=== PATIENT | female | born 1930 | race Caucasian/White ===

== ENCOUNTER → 2017-05-04 | Outpatient (CLI) | payer OTHER, MEDICARE ==
[~2017-05-04] MED LIST: ASPIR 8181 M1 PO; ASPIRIN EC325 MG PO; CALCIUM 500 MG1 EACH PO; CELECOXIB200 MG PO; CYANOCOBALAM1000 MCG PO; DOXAZOSIN MESYLA8 MG PO; FERROUS SULFAT325 MG PO; FIBERCON625 MG PO; GARLIC1 EACH PO; HYDROCHLOROTH12.5 M3 PO; HYDROCODON-ACE1 EAC7 PO; LOSARTAN POTAS100 MG PO; LOVASTATIN20 MG PO; MAGNESIUM250 M1 PO; METOPROLOL TART25 MG PO; OMEPRAZOLE20 M2 PO; SPIRONOLACTONE25 MG PO; TYLENOL ARTHRI650 MG PO
== END | disposition home or self-care (01) ==
LOC: RAD 08:45
DX: H05.20 Unspecified exophthalmos (principal); H05.823 Myopathy of extraocular muscles, bilateral; E05.00 Thyrotoxicosis with diffuse goiter without thyrotoxic crisis or storm; H53.8 Other visual disturbances
CPT/HCPCS: 70482

== ENCOUNTER 2017-06-23 07:15 | Inpatient (IN) | payer OTHER, MEDICARE ==
[~2017-06-23] VITALS: Ht 157.5 cm; Wt 72.1 kg
[2017-06-23 08:04] LABS: HEMATOCRIT 24.4 % (36.0-46.0); HEMOGLOBIN 8.6 G/DL (11.9-15.5); MCH 31.5 PG (29.0-34.0); MCHC 35.2 G/DL (30.0-36.0); MCV 89.4 FL (83-99); NRBC (%) 0.1 /100 WBC (0-0); PLATELET COUNT 214 K/uL (156-360); RBC DIS.WIDTH-CV 15.9 % (11.8-14.6); RBC DIS.WIDTH-SD 51.7 % (39-53); RED BLOOD COUNT 2.73 M/uL (3.80-5.20); WHITE BLOOD COUNT 27.8 K/uL (4.1-10.2)
[2017-06-23 08:12] LABS: ALBUMIN 2.9 g/dL (3.2-4.8)
[2017-06-23 08:13] LABS: CHLORIDE 92 mEq/L (99-109); POTASSIUM 4.3 mEq/L (3.7-5.4); SODIUM 126 mEq/L (136-147)
[2017-06-23 08:15] LABS: GLUCOSE 210 mg/dL (70-99); TOTAL PROTEIN 4.7 g/dL (6.4-8.3)
[2017-06-23 08:17] LABS: TOTAL BILIRUBIN 0.7 mg/dL (0.0-1.0)
[2017-06-23 08:18] LABS: ALKALINE PHOSPHATASE 71 IU/L (3-129)
[2017-06-23 08:19] LABS: CREATININE 1.2 mg/dL (0.6-1.3); GFR ESTIMATE (CALCULATED) 45 mL/min/
[2017-06-23 08:20] LABS: AST (GOT) 9 IU/L (2-34); UREA NITROGEN (BUN) 39 mg/dL (9-23)
[2017-06-23 08:22] LABS: ALT (GPT) 11 IU/L (3-49); LIPASE 2 U/L (1.0-51.0)
[2017-06-23 08:24] LABS: TROP-I INTERPRETATION NEGATIVE; TROPONIN-I 0.03 ng/mL (0.0-0.30)
[2017-06-23 08:43] LABS: APPEARANCE CLEAR ((CLEAR)); BILIRUBIN NEGATIVE; BLOOD NEGATIVE; COLOR YELLOW ((YELLOW)); GLUCOSE (STRIP) NEGATIVE; KETONES NEGATIVE; LEUKOCYTES NEGATIVE; NITRITE NEGATIVE; PROTEIN (STRIP) 100
[2017-06-23 08:51] LABS: BACTERIA NONE SEEN /HPF; EPITHELIAL CELLS NONE SEEN /HPF; MUCUS NONE SEEN /LPF; RED BLOOD CELLS 0-5 /HPF (0-5); WHITE BLOOD CELLS 0-5 /HPF (0-5)
[2017-06-23 09:16] LABS: SPECIFIC GRAVITY 1.062 (1.000-1.030)
[2017-06-23 15:25] LABS: TROP-I INTERPRETATION NEGATIVE; TROPONIN-I 0.02 ng/mL (0.0-0.30)
[2017-06-23] MEDS ORDERED: LO-DOSE ASPIRIN81 M2 PO (16:26)
[2017-06-23] MEDS ORDERED: LASIX40 MG PO (16:32)
[2017-06-23] MEDS ORDERED: LEVOTHYROXINE25 MCG PO (16:33)
[2017-06-23] MEDS ORDERED: PREDNISONE20 MG PO (16:37)
[2017-06-23] MEDS ORDERED: INDERAL10 MG PO (16:42)
[2017-06-23] MEDS ORDERED: TAPAZOLE10 MG PO (16:44)
[2017-06-23 20:30] VITALS: BP 138/61
[2017-06-23 22:13] LABS: TROP-I INTERPRETATION NEGATIVE; TROPONIN-I 0.14 ng/mL (0.0-0.30)
[2017-06-24] VITALS (10 sets, daily range): BP systolic 121–190; BP diastolic 54–82
[2017-06-24 05:53] LABS: HEMATOCRIT 21.5 % (36.0-46.0); HEMOGLOBIN 7.3 G/DL (11.9-15.5); MCH 31.2 PG (29.0-34.0); MCV 91.9 FL (83-99); PLATELET COUNT 181 K/uL (156-360); RBC DIS.WIDTH-CV 16.9 % (11.8-14.6); RBC DIS.WIDTH-SD 56.8 % (39-53); RED BLOOD COUNT 2.34 M/uL (3.80-5.20); WHITE BLOOD COUNT 18.8 K/uL (4.1-10.2)
[2017-06-24 06:00] LABS: INTER. NORMALIZED RATIO 1.3
[2017-06-24 09:13] LABS: FERRITIN 91 NG/ML (10-291)
[2017-06-24 09:25] LABS: CHLORIDE 104 MEQ/L (99-109); GFR ESTIMATE (CALCULATED) 56 mL/min/; GLUCOSE 242 mg/dL (70-99); POTASSIUM 3.5 MEQ/L (3.7-5.4); SODIUM 133 MEQ/L (136-147); TRANSFERRIN (TIBC) 152.7 mg/dL (215-380); UREA NITROGEN (BUN) 25 mg/dL (9-23)
[2017-06-24 14:06] LABS: IRON < 10 MCG/DL (35-150); TRANSFERRIN SATUR. 7 % (20-55)
[2017-06-25] VITALS (8 sets, daily range): BP systolic 149–182; BP diastolic 67–81
[2017-06-25 05:37] LABS: HEMATOCRIT 25.6 % (36.0-46.0); HEMOGLOBIN 8.5 G/DL (11.9-15.5); MCH 29.8 PG (29.0-34.0); MCHC 33.2 G/DL (30.0-36.0); MCV 89.8 FL (83-99); PLATELET COUNT 174 K/uL (156-360); RBC DIS.WIDTH-CV 18.5 % (11.8-14.6); RBC DIS.WIDTH-SD 60.6 % (39-53); WHITE BLOOD COUNT 13.1 K/uL (4.1-10.2)
[2017-06-25 05:39] LABS: RED BLOOD COUNT 2.85 M/uL (3.80-5.20)
[2017-06-25 06:04] LABS: CHLORIDE 112 MEQ/L (99-109); CREATININE 0.8 MG/DL (0.6-1.3); GFR ESTIMATE (CALCULATED) > 59 mL/min/; GLUCOSE 272 mg/dL (70-99); MAGNESIUM 2.5 mg/dl (1.3-2.7); POTASSIUM 3.5 MEQ/L (3.7-5.4); UREA NITROGEN (BUN) 20 mg/dL (9-23)
[2017-06-25 06:06] LABS: SODIUM 141 MEQ/L (136-147)
[2017-06-26] VITALS (7 sets, daily range): BP systolic 134–197; BP diastolic 63–82
[2017-06-26 05:20] LABS: HEMATOCRIT 26.8 % (36.0-46.0); HEMOGLOBIN 8.6 G/DL (11.9-15.5); MCH 29.4 PG (29.0-34.0); MCHC 32.1 G/DL (30.0-36.0); MCV 91.5 FL (83-99); PLATELET COUNT 201 K/uL (156-360); RBC DIS.WIDTH-CV 18.9 % (11.8-14.6); RBC DIS.WIDTH-SD 64.4 % (39-53); RED BLOOD COUNT 2.93 M/uL (3.80-5.20); WHITE BLOOD COUNT 10.6 K/uL (4.1-10.2)
[2017-06-26 07:13] LABS: CHLORIDE 116 MEQ/L (99-109); GFR ESTIMATE (CALCULATED) 56 mL/min/; GLUCOSE 325 mg/dL (70-99); POTASSIUM 3.9 MEQ/L (3.7-5.4); SODIUM 147 MEQ/L (136-147); UREA NITROGEN (BUN) 24 mg/dL (9-23)
[2017-06-26 08:51] LABS: C DIFF TOXIN NEGATIVE (NEGATIVE)
[2017-06-27 00:47] VITALS: BP 128/92
[2017-06-27 04:09] VITALS: BP 138/65
[2017-06-27 05:54] LABS: BASOPHIL (%) 0.2 % (0-1); EOSINOPHIL (%) 0.1 % (0-5); HEMATOCRIT 24.5 % (36.0-46.0); HEMOGLOBIN 7.7 G/DL (11.9-15.5); IMMATURE GRANULOCYTE (%) 0.8 % (0.0-0.7); LYMPHOCYTE (%) 4.2 % (15-42); LYMPHOCYTE COUNT 0.5 K/uL (1.0-2.8); MCH 28.9 PG (29.0-34.0); MCHC 31.4 G/DL (30.0-36.0); MCV 92.1 FL (83-99); MONOCYTE COUNT 0.7 K/uL (0-0.8); NEUTROPHIL (%) 88.7 % (45-76); NEUTROPHIL COUNT 10.3 K/uL (1.8-6.4); PLATELET COUNT 199 K/uL (156-360); RBC DIS.WIDTH-CV 19.1 % (11.8-14.6); RBC DIS.WIDTH-SD 65.1 % (39-53); RED BLOOD COUNT 2.66 M/uL (3.80-5.20); WHITE BLOOD COUNT 11.6 K/uL (4.1-10.2)
[2017-06-27 06:42] LABS: CHLORIDE 125 MEQ/L (99-109); CREATININE 1.4 MG/DL (0.6-1.3); GFR ESTIMATE (CALCULATED) 38 mL/min/; MAGNESIUM 2.5 mg/dl (1.3-2.7); PHOSPHORUS 1.4 mg/dL (2.5-4.9); POTASSIUM 3.6 MEQ/L (3.7-5.4); SODIUM 153 MEQ/L (136-147); UREA NITROGEN (BUN) 27 mg/dL (9-23)
[2017-06-27 06:44] LABS: GLUCOSE 156 mg/dL (70-99)
[2017-06-27 07:31] VITALS: BP 138/71
[2017-06-27 08:05] LABS: PREALBUMIN 13.1 mg/dL (10-40); TRANSFERRIN (TIBC) 132.5 mg/dL (215-380)
[2017-06-27 11:45] VITALS: BP 144/74
[2017-06-27 16:40] LABS: CHLORIDE 123 MEQ/L (99-109); CREATININE 1.6 MG/DL (0.6-1.3); GFR ESTIMATE (CALCULATED) 32 mL/min/; SODIUM 147 MEQ/L (136-147); UREA NITROGEN (BUN) 30 mg/dL (9-23)
[2017-06-27 16:41] LABS: GLUCOSE 240 mg/dL (70-99)
[2017-06-27 19:25] VITALS: BP 132/60
[2017-06-27 23:37] VITALS: BP 116/49
[2017-06-28 02:47] VITALS: BP 134/63
[2017-06-28 06:20] LABS: BASOPHIL (%) 0.3 % (0-1); EOSINOPHIL (%) 0.7 % (0-5); EOSINOPHIL COUNT 0.1 K/uL (0-0.3); HEMATOCRIT 25.2 % (36.0-46.0); HEMOGLOBIN 7.8 G/DL (11.9-15.5); IMMATURE GRANULOCYTE (%) 1.8 % (0.0-0.7); LYMPHOCYTE COUNT 0.6 K/uL (1.0-2.8); MCH 29.1 PG (29.0-34.0); MONOCYTE (%) 7.2 % (3-12); MONOCYTE COUNT 0.8 K/uL (0-0.8); NEUTROPHIL COUNT 9.6 K/uL (1.8-6.4); NRBC (%) 0.4 /100 WBC (0-0); PLATELET COUNT 194 K/uL (156-360); RBC DIS.WIDTH-CV 19.4 % (11.8-14.6); RBC DIS.WIDTH-SD 66.4 % (39-53); RED BLOOD COUNT 2.68 M/uL (3.80-5.20); WHITE BLOOD COUNT 11.3 K/uL (4.1-10.2)
[2017-06-28 06:30] LABS: ALBUMIN 2.4 G/DL (3.2-4.8); ALKALINE PHOSPHATASE 51 IU/L (3-129); ALT (GPT) 11 IU/L (3-49); AST (GOT) < 7 IU/L (2-34); CHLORIDE 119 MEQ/L (99-109); CREATININE 1.4 MG/DL (0.6-1.3); DIRECT BILIRUBIN 0.1 mg/dL (0.0-0.3); GFR ESTIMATE (CALCULATED) 38 mL/min/; GLUCOSE 237 mg/dL (70-99); MAGNESIUM 2.2 mg/dl (1.3-2.7); POTASSIUM 4.9 MEQ/L (3.7-5.4); SODIUM 143 MEQ/L (136-147); TOTAL BILIRUBIN 0.3 MG/DL (0.0-1.0); TOTAL PROTEIN 4.1 G/DL (6.4-8.3); TRIGLYCERIDES 86 MG/DL (Normal: <150); UREA NITROGEN (BUN) 34 mg/dL (9-23)
[2017-06-28 06:32] LABS: PHOSPHORUS 3.1 mg/dL (2.5-4.9)
[2017-06-28 07:30] VITALS: BP 148/67
[2017-06-28 11:15] VITALS: BP 153/68
[2017-06-28 16:19] VITALS: BP 154/70
[2017-06-28 19:25] VITALS: BP 154/72
[2017-06-29 00:36] VITALS: BP 180/73
[2017-06-29 00:37] VITALS: BP 130/75
[2017-06-29 03:35] VITALS: BP 152/87
[2017-06-29 06:06] LABS: CHLORIDE 116 MEQ/L (99-109); CREATININE 1.4 MG/DL (0.6-1.3); GFR ESTIMATE (CALCULATED) 38 mL/min/; GLUCOSE 198 mg/dL (70-99); MAGNESIUM 1.9 mg/dl (1.3-2.7); PHOSPHORUS 3.3 mg/dL (2.5-4.9); POTASSIUM 4.3 MEQ/L (3.7-5.4); SODIUM 141 MEQ/L (136-147); UREA NITROGEN (BUN) 40 mg/dL (9-23)
[2017-06-29 07:31] VITALS: BP 146/65
[2017-06-29 10:59] LABS: BASE EXCESS -6.6 mEq/L (-3 to +3); BICARBONATE 20.9 mEq/L (22-26); CARBOXY HGB 1.5 % (0-5); METHEMOGLOBIN 1.8 % (0-1.5); PCO2 51 mm Hg (35-45); PO2 72 mm Hg (80-100); pH 7.22 (7.35-7.45)
[2017-06-29 11:00] LABS: DEVICE NB; O2 FLOW 15 L/MIN; SITE RB; TOTAL RESP RATE 30 resp/min
[2017-06-29 11:01] LABS: COMMENTS - BLOOD GASES C+
[2017-06-29 11:06] LABS: BASOPHIL (%) 0.2 % (0-1); EOSINOPHIL (%) 0.5 % (0-5); EOSINOPHIL COUNT 0.1 K/uL (0-0.3); HEMATOCRIT 25.9 % (36.0-46.0); HEMOGLOBIN 8.3 G/DL (11.9-15.5); IMMATURE GRANULOCYTE (%) 2.4 % (0.0-0.7); LYMPHOCYTE (%) 6.6 % (15-42); LYMPHOCYTE COUNT 0.7 K/uL (1.0-2.8); MCV 93.5 FL (83-99); MONOCYTE (%) 8.2 % (3-12); MONOCYTE COUNT 0.9 K/uL (0-0.8); NEUTROPHIL (%) 82.1 % (45-76); NEUTROPHIL COUNT 9.3 K/uL (1.8-6.4); NRBC (%) 0.5 /100 WBC (0-0); PLATELET COUNT 208 K/uL (156-360); RBC DIS.WIDTH-CV 18.9 % (11.8-14.6); RBC DIS.WIDTH-SD 64.1 % (39-53); RED BLOOD COUNT 2.77 M/uL (3.80-5.20); WHITE BLOOD COUNT 11.3 K/uL (4.1-10.2)
[2017-06-29 11:11] LABS: INTER. NORMALIZED RATIO 1.1
[2017-06-29 11:14] LABS: ALBUMIN 2.5 g/dL (3.2-4.8)
[2017-06-29 11:15] LABS: CHLORIDE 117 mEq/L (99-109); POTASSIUM 4.6 mEq/L (3.7-5.4); SODIUM 141 mEq/L (136-147)
[2017-06-29 11:17] LABS: GLUCOSE 254 mg/dL (70-99); TOTAL PROTEIN 4.5 g/dL (6.4-8.3)
[2017-06-29 11:20] LABS: ALKALINE PHOSPHATASE 56 IU/L (3-129)
[2017-06-29 11:21] LABS: CREATININE 1.3 mg/dL (0.6-1.3); GFR ESTIMATE (CALCULATED) 41 mL/min/
[2017-06-29 11:22] LABS: AST (GOT) 10 IU/L (2-34); UREA NITROGEN (BUN) 41 mg/dL (9-23)
[2017-06-29 11:23] LABS: ALT (GPT) 13 IU/L (3-49); TOTAL BILIRUBIN 0.2 mg/dL (0.0-1.0)
[2017-06-29 11:27] LABS: TROP-I INTERPRETATION NEGATIVE; TROPONIN-I 0.04 ng/mL (0.0-0.30)
[2017-06-29 11:30] VITALS: BP 140/38
== END 2017-06-29 22:49 | DRG 393 ==
LOC: EME 07:15 → EDOF 10:47 → ENRESERV 10:47 → 4EAST 10:47 → ENRESERV 10:51 → EDOF 12:56 → ENRESERV 12:59 → 4EAST 17:05
PROVIDERS: Hospitalist; Internal Medicine; Internal Medicine Gastroenterology; Nurse Practitioner Family; Physician Assistant; Thoracic Surgery (Cardiothoracic Vascular Surgery)
PROC: 30233N1 Transfusion of Nonautologous Red Blood Cells into Peripheral Vein, Percutaneous Approach (ICD-10-PCS; principal; 2017-06-24)
PROC: 02HV33Z Insertion of Infusion Device into Superior Vena Cava, Percutaneous Approach (ICD-10-PCS; 2017-06-27)
PROC: 3E0436Z Introduction of Nutritional Substance into Central Vein, Percutaneous Approach (ICD-10-PCS; 2017-06-27)
DX: K55.9 Vascular disorder of intestine, unspecified (principal); R65.11 Systemic inflammatory response syndrome (SIRS) of non-infectious origin with acute organ dysfunction; I63.9 Cerebral infarction, unspecified; I26.99 Other pulmonary embolism without acute cor pulmonale; J96.00 Acute respiratory failure, unspecified whether with hypoxia or hypercapnia; E44.0 Moderate protein-calorie malnutrition; I48.91 Unspecified atrial fibrillation; I27.20 Pulmonary hypertension, unspecified; E87.1 Hypo-osmolality and hyponatremia; E87.2 Acidosis; L98.419 Non-pressure chronic ulcer of buttock with unspecified severity; E86.0 Dehydration; Z66 Do not resuscitate; Z51.5 Encounter for palliative care; D50.9 Iron deficiency anemia, unspecified; K59.00 Constipation, unspecified; M54.9 Dorsalgia, unspecified; E05.00 Thyrotoxicosis with diffuse goiter without thyrotoxic crisis or storm; I25.10 Atherosclerotic heart disease of native coronary artery without angina pectoris; G47.30 Sleep apnea, unspecified; I10 Essential (primary) hypertension; I73.9 Peripheral vascular disease, unspecified; E03.9 Hypothyroidism, unspecified; R33.9 Retention of urine, unspecified; K21.9 Gastro-esophageal reflux disease without esophagitis; Z91.81 History of falling; Z95.5 Presence of coronary angioplasty implant and graft; Z95.820 Peripheral vascular angioplasty status with implants and grafts; Z87.11 Personal history of peptic ulcer disease; Z96.652 Presence of left artificial knee joint; E87.6 Hypokalemia; Z90.49 Acquired absence of other specified parts of digestive tract; Z82.3 Family history of stroke
CPT/HCPCS: 36600; 71045; 74019; 76937; 80048; 80048 91; 80053; 81003; 82248; 82272; 82728; 82803; 82948; 83540; 83605; 83690; 83735; 84100; 84134; 84443; 84466; 84478; 84484; 84630 90; 85025; 85027; 85610; 86850; 86900; 86901; 86920; 87040; 87177; 87329; 87493; 87506; 93005; 93306; 94640; 94799; 97530 GO; 97530 GP; 99281; 99285; A6214; J0360; J1160; J1644; J1756; J1815; J1940; J2543; J2930; J3480; J7030; J7040; J7042; J7050; P9016; S0030